=== PATIENT | male | born 1945 | race Caucasian/White ===

== ENCOUNTER 2018-12-06 13:29 | Inpatient (IN) | payer MEDICARE, MEDICAID ==
[~2018-12-06] VITALS: Ht 190.5 cm; Wt 79.2 kg
[2018-12-06 13:51] LABS: BASOPHILS # (AUTO) 0.1 /CMM (0.0-0.2); BASOPHILS % (AUTO) 1.4 % (0.0-2.0); EOSINOPHILS % (AUTO) 0.1 % (0.0-6.0); HEMATOCRIT 33 % (39-51); HEMOGLOBIN 10.7 g/dL (13.5-17.5); LYMPHOCYTES # (AUTO) 0.6 /CMM (0.8-4.8); LYMPHOCYTES % (AUTO) 7.6 % (20.0-44.0); MEAN CORPUSCULAR HGB CONC 33 g/dl (31.0-36.0); MEAN CORPUSCULAR VOLUME 87 fL (80-96); MONOCYTES # (AUTO) 0.9 /CMM (0.1-1.30); MONOCYTES % (AUTO) 11.1 % (2.0-12.0); NEUTROPHILS # (AUTO) 6.7 /CMM (1.8-8.9); NEUTROPHILS % (AUTO) 79.8 % (43.0-81.0); PLATELET COUNT (AUTO) 382 /CMM (150-450); RED BLOOD CELL COUNT(AUTO) 3.74 MIL/uL (4.5-6.0); WHITE BLOOD COUNT (AUTO) 8.3 K/uL (4.3-11.0)
--- NOTE | 2018-12-06 13:51 | NUR ---
Dr Carias's public services assistant (Leyla) contact info: [phone]
[2018-12-06] MEDS ORDERED: CEFTRIAXONE 1GM BAG (ER ONLY) 50 ML IV ONE ×2 (14:00)
[2018-12-06] MEDS ORDERED: IV NS 0.9% 1,000 ML BAG IV ONE (14:00)
--- NOTE | 2018-12-06 14:00 | NUR ---
BIBRA 87 from home c/o generalized weakness, bilateral pitting edema to lower extremities, hx of colon cancer (stage 4). PT AAOX4, VSS. DENIES CP, SOB, DIZZINESS, N/V/D AT THIS TIME. PT SEEN & EVAL'D BY DR. SHOEMAKER. DAUGHTER AT BS & WILL CONT TO MONITOR.
[2018-12-06 14:01] LABS: CALCIUM, SERUM 7.7 mg/dL (8.5-10.1); CARBON DIOXIDE 23 mmol/L (21-32); CHLORIDE 98 mmol/L (98-107); CREATININE 0.8 mg/dL (0.6-1.3); GLUCOSE 152 mg/dL (74-106); POTASSIUM 3.6 mmol/L (3.5-5.1); SODIUM SERUM 132 mmol/L (136-145); UREA NITROGEN, BLOOD 13 mg/dL (7-18)
[2018-12-06 14:06] LABS: ALANINE AMINOTRANSFERASE 18 U/L (12-78); ALBUMIN 2.6 g/dL (3.4-5.0); ALKALINE PHOSPHATASE 165 U/L (46-116); ASPARTATE AMINOTRANSFERASE 28 U/L (15-37); BILIRUBIN,DIRECT 0.1 mg/dL (0.0-0.2); BILIRUBIN,TOTAL 0.4 mg/dL (0.2-1.0); TOTAL PROTEIN, SERUM 6.9 g/dL (6.4-8.2)
[2018-12-06 14:53] LABS: APPEARANCE,URINE Clear (CLEAR); BILIRUBIN,URINE Negative (NEGATIVE); BLOOD, URINE Negative Ery/uL (NEGATIVE); COLOR,URINE Yellow (YELLOW); KETONES,URINE Negative (NEGATIVE); LEUKOCYTE ESTERASE ,URINE Negative (NEGATIVE); NITRITE, URINE Negative (NEGATIVE); PROTEIN,URINE Negative (NEGATIVE); UGLUCOSE Negative (NEGATIVE); UROBILINOGEN,URINE 0.2 EU/dL (0.2)
--- NOTE | 2018-12-06 15:03 | NUR ---
IMTIAZ FRIAS, MIRIAM ALMAGUER AIRLINE LOUNGE RECEPTIONIST MORTAR CARRIER
--- NOTE | 2018-12-06 15:10 | NUR ---
CALLED NURSING SUP. FOR MS BED
[2018-12-06] MEDS ORDERED: DEXA4TAB PO (16:08)
[2018-12-06] MEDS ORDERED: FURO40TA5 PO (16:08)
[2018-12-06] MEDS ORDERED: ONDA4TAB10 PO (16:08)
[2018-12-06] MEDS ORDERED: PANT40TA4 PO (16:08)
[2018-12-06] MEDS ORDERED: TRAZ-213 PO (16:08)
[2018-12-06] MEDS ORDERED: POTA20TA83 PO (16:08)
[2018-12-06] MEDS ORDERED: CHOL10002 PO (16:08)
[2018-12-06] MEDS ORDERED: NITR0.4T48 PO (16:08)
[2018-12-06] MEDS ORDERED: NAPR-1009 PO (16:08)
[2018-12-06] MEDS ORDERED: SIMV20TA6 PO (16:08)
[2018-12-06] MEDS ORDERED: FENT1PAT6 TD (16:08)
[2018-12-06 16:58] LABS: B-TYPE NATRIURETIC PEPTIDE 1466 PG/ML (0-125)
[2018-12-06 16:59] LABS: CREATINE KINASE, TOTAL 48 U/L (39-308)
[2018-12-06 17:30] VITALS: BP 118/56
--- NOTE | 2018-12-06 17:30 | NUR ---
MS RN ADMITTING NOTES ADMITTED PT FROM ER WITH DX OF FAILURE TO THRIVE.PT IS ALERT AND ORIENTED X3 BUT HARDLY SPEAKS.RESPIRATIONS NON LABORED IN ROOM AIR. DENIES ANY DISTRESS/DISCOMFORT.SKIN INTACT.WITH BLE PITTING EDEMA STAGE 4.ELEVATED BLE WITH PILLOWS.ORIENTATION TO ROOM AND USE OF CALL LIGHT DONE.PT PREFERS TO SLEEP AND C/O FEELING COLD ALL THE TIME.COVERED PT WITH 3 WARM BLANKETS.ATE 40%DINNER .CALL LIGHT PLACED WITHIN REACH.
[2018-12-06 18:00] VITALS: BP 118/56
[2018-12-06] MEDS ORDERED: ZOLPIDEM TARTRATE 5 MG TABLET PO PRN (18:30)
[2018-12-06] MEDS ORDERED: Z GUARD REMEDY 2 OZ OINT TP PRN (18:30)
[2018-12-06] MEDS ORDERED: ONDANSETRON HCL/PF 4 MG/2 ML VIAL IVP PRN (18:30)
[2018-12-06] MEDS: IV NS 0.9% 1,000 ML IV PRN (18:50)
[2018-12-06] MEDS: MULTIVITAMINS,THERAGRAN 1 UDTAB TABLET PO SCH (19:03)
[2018-12-06] MEDS: FOLIC ACID 1 MG TABLET PO SCH (19:03)
--- NOTE | 2018-12-06 19:20 | NUR ---
MS RN OPENING NOTES Received patient A/O x 4, awake on supine position on bed. On RA, no SOB/respiratory distress noted. Patient denies any discomfort at this time. With patent peripheral IV line RFA G#18 with NS infsuing well @ 75ml/hr as ordered. On fall precaution. Call light with easy reach. Will continue to monitor accordingly.
[2018-12-06 20:00] VITALS: BP 117/57
[2018-12-06] MEDS: ENOXAPARIN SODIUM 40 MG/0.4 ML DISP.SYRIN SQ SCH (21:34)
--- NOTE | 2018-12-07 06:45 | NUR ---
MS RN CLOSING NOTES Patient intermittently asleep throughout the shift. No new complaints made. Kept warm and comfortable, call light within easy reach. On fall precautions. All due meds given as ordered. No new complaints made. Endorsed to the next shift.
[2018-12-07 06:47] LABS: BASOPHILS % (AUTO) 0.1 % (0.0-2.0); EOSINOPHILS % (AUTO) 0.1 % (0.0-6.0); HEMATOCRIT 28 % (39-51); HEMOGLOBIN 9.3 g/dL (13.5-17.5); LYMPHOCYTES # (AUTO) 0.8 /CMM (0.8-4.8); LYMPHOCYTES % (AUTO) 12.6 % (20.0-44.0); MEAN CORPUSCULAR HGB CONC 33 g/dl (31.0-36.0); MEAN CORPUSCULAR VOLUME 87 fL (80-96); MONOCYTES # (AUTO) 0.8 /CMM (0.1-1.30); MONOCYTES % (AUTO) 12.9 % (2.0-12.0); NEUTROPHILS # (AUTO) 4.9 /CMM (1.8-8.9); NEUTROPHILS % (AUTO) 74.3 % (43.0-81.0); PLATELET COUNT (AUTO) 328 /CMM (150-450); RED BLOOD CELL COUNT(AUTO) 3.27 MIL/uL (4.5-6.0); WHITE BLOOD COUNT (AUTO) 6.6 K/uL (4.3-11.0)
[2018-12-07 06:49] LABS: ALANINE AMINOTRANSFERASE 16 U/L (12-78); ALBUMIN 2.1 g/dL (3.4-5.0); ALKALINE PHOSPHATASE 139 U/L (46-116); ASPARTATE AMINOTRANSFERASE 18 U/L (15-37); BILIRUBIN,TOTAL 0.5 mg/dL (0.2-1.0); CALCIUM, SERUM 6.8 mg/dL (8.5-10.1); CARBON DIOXIDE 22 mmol/L (21-32); CHLORIDE 99 mmol/L (98-107); CREATININE 0.7 mg/dL (0.6-1.3); GLUCOSE 142 mg/dL (74-106); MAGNESIUM 2.1 mg/dL (1.8-2.4); PHOSPHORUS 2.2 mg/dL (2.5-4.9); POTASSIUM 3.6 mmol/L (3.5-5.1); SODIUM SERUM 132 mmol/L (136-145); UREA NITROGEN, BLOOD 11 mg/dL (7-18)
[2018-12-07 06:56] LABS: CHOLESTEROL 128 mg/dL (<200); HDL CHOLESTEROL 39 mg/dL (40-60); LDL 84 mg/dL (0-99); THYROID STIMULATING HORMONE 2.305 uIU/mL (0.358-3.74); TRIGLYCERIDES 75 mg/dL (30-150)
[2018-12-07 07:00] VITALS: BP 100/46
[2018-12-07 07:06] LABS: IRON, SERUM 16 ug/dl (50-175); TOTAL IRON BINDING CAPACITY 139 ug/dl (250-450)
[2018-12-07 07:52] LABS: THYROID STIMULATING HORMONE 2.277 uIU/mL (0.358-3.74)
[2018-12-07 08:00] VITALS: BP 100/46
--- NOTE | 2018-12-07 09:39 | NUR ---
patient is for ct scan of the head and radiology personnel and patient to ct scan department for the scheduled procedure in stable condition
[2018-12-07] MEDS ORDERED: K PHOS NEUTRAL 250 MG TABLET PO ONE (10:00)
[2018-12-07] MEDS: PANTOPRAZOLE 40 MG TABLET.DR PO SCH (10:25)
[2018-12-07] MEDS: MULTIVITAMINS,THERAGRAN 1 UDTAB TABLET PO SCH (10:26)
[2018-12-07] MEDS: FOLIC ACID 1 MG TABLET PO SCH (10:26)
--- NOTE | 2018-12-07 10:39 | NUR ---
CT SCAN OF THE BRAIN COMPLETED AND PATIENT BACK TO THE ROOM. MEDICATIONS DUE GIVEN. PHYSICAL THERAPY IN AND WILL DO PHYSICAL THERAPY ORDERED.
[2018-12-07] MEDS: IV NS 0.9% 1,000 ML IV PRN (11:14)
--- NOTE | 2018-12-07 12:04 | NUR ---
family in and brought food for the patient. PT in and ambulated the patient ,tolerated well
--- NOTE | 2018-12-07 13:12 | NUR ---
DR ALMAGUER PAGED NOT RESPONDED TO TEXT, REGARDING PATIENT REQUEST TO TALK TO THE PHYSICIAN AND ORDERED FOR A PAIN PATCH TO THE RIGHT SHOUOLDERS PAIN AND STOCKING FOR BILATERAL LEGS DUE TO SWELLING. MESSAGE LEFT WITH THE EXCHANGE, AWAITING RESPONSE
[2018-12-07] MEDS: HYDROCODONE/APAP 5/325MG 1 EACH TABLET PO PRN (13:28)
[2018-12-07 13:29] VITALS: BP 111/48
--- NOTE | 2018-12-07 13:54 | NUR ---
EXCHAGE ALLED IF DR Rogers HAS CALLED BACK AND NOT CALLED BACK.WILL REACH OUT TO dR ROGERS AGAIN. Addendum: 12/07/18 at 1356 by VANESSA ESPINOSA RN AWAITING FOR DR ROGERS TO CALL SOURAV
--- NOTE | 2018-12-07 14:27 | NUR ---
DR ALMAGUER DID NOT CALL BACK AND NOT RESPONDED TO THE TEXT, CALLED EXCHANGE AND DR HERNANDEZ IS THE TRANSITIONAL CARE NURSE. EXCHAMGE WILL CALL HIM FOR ORDERS, DR ALMAGUER DID NOT RESPONSE
--- NOTE | 2018-12-07 14:43 | NUR ---
AMBULATED TO THE EUNICEROM WITH A WALKER AND WITH ASSIST. TOLERATED AND ASSISTED BACK TO BED, TOLERATED THE PROCEDURE
[2018-12-07] MEDS: PROSOURCE / PROSTAT (PYXIS) 30 ML UDC PO SCH ×2 (15:22→17:00)
--- NOTE | 2018-12-07 15:31 | NUR ---
DR ALMAGUER RESPONDED DWIGHT TEXT MESSAGE AND WITH NO FURTHER ORDERS,
[2018-12-07 15:47] VITALS: BP 111/57
--- NOTE | 2018-12-07 17:43 | NUR ---
PROSTAT GIVEN AT 1500 HOURS, DOSE HELD FOR NOW
[2018-12-07] MEDS: ENSURE ENLIVE 237 ML LIQUID (VANILLA) PO SCH (17:44)
--- NOTE | 2018-12-07 19:10 | NUR ---
MS RN NOTE RECEIVED PT IN STABLE CONDITION A&O X4, ABLE TO MAKE NEEDS KNOWN. CURRENTLY IN BED TAKING A NAP, EASILY AROUSABLE WHEN NAME IS CALLED. NO SIGNS OF SOB OR DISTRESS, NO C/O PAIN. IV PATENT AND INTACT WITH IVF INFUSING. ALL CURRENT NEEDS MET. BED LOW, LOCKED, UPPER RAILS UP, AND CALL LIGHT WITHIN REACH. WILL CONT. TO MONITOR.
[2018-12-07 20:00] VITALS: BP 110/49
[2018-12-07] MEDS: ENOXAPARIN SODIUM 40 MG/0.4 ML DISP.SYRIN SQ SCH (20:51)
[2018-12-07] MEDS: ACETAMINOPHEN 325 MG TABLET PO PRN (20:55)
--- NOTE | 2018-12-08 06:25 | NUR ---
MS RN NOTE PT IN STABLE CONDITION A&O X4, ABLE TO MAKE NEEDS KNOWN. IN BED AND AWAKE. NO SIGNS OF SOB OR DISTRESS, NO C/O PAIN. IV PATENT AND INTACT S/L. ALL CURRENT NEEDS MET. BED LOW, LOCKED, UPPER RAILS UP, AND CALL LIGHT WITHIN REACH. WILL CONT. TO MONITOR AND ENDORSE TO NEXT SHIFT FOR APOLLO.
--- NOTE | 2018-12-08 07:14 | NUR ---
MS RN OPENING NOTES RECEIVED PT AWAKE IN BED IN NO ACUTE SIGNS OF DISTRESS. A/O X4 AND ABLE TO MAKE NEEDS KNOWN, DENIES PAIN OR ANY DISCOMFORTS AT THIS TIME. ON ROOM AIR, RESPIRATIONS EVEN AND UNLABORED. IV HL ON RFA PATENT AND INTACT. BED IN LOW LOCKED POSITION WITH SIDE RAILS UP X2 AND CALL LIGHT WITHIN REACH. WILL CONTINUE TO MONITOR ACCORDINGLY.
[2018-12-08] MEDS: PANTOPRAZOLE 40 MG TABLET.DR PO SCH (07:40)
[2018-12-08] MEDS: HYDROCODONE/APAP 5/325MG 1 EACH TABLET PO PRN ×2 (07:44→16:17)
[2018-12-08 08:00] VITALS: BP 109/53
[2018-12-08] MEDS: ENSURE ENLIVE 237 ML LIQUID (VANILLA) PO SCH ×3 (08:05→17:30)
[2018-12-08] MEDS: FOLIC ACID 1 MG TABLET PO SCH (08:05)
[2018-12-08] MEDS: MULTIVITAMINS,THERAGRAN 1 UDTAB TABLET PO SCH (08:05)
[2018-12-08] MEDS: PROSOURCE / PROSTAT (PYXIS) 30 ML UDC PO SCH ×2 (08:05→16:22)
--- NOTE | 2018-12-08 11:08 | NUR ---
WOUND CARE CONSULT: PT PRESENTS WITH RT HIP BRUISING AND DRY ABRASION, PRESENT ON ADMISSION. PT ABLE TO ASSIST WITH TURNING AND REPOSITIONING IN BED. BILATERAL LOWER EXTREMITIES HAVE 4+ EDEMA. LEGS ELEVATED. PT IS CONTINENT AT THIS TIME. RECOMMENDATIONS MADE FOR SKIN PROTECTION. DISCUSSED WITH NURSING STAFF. WILL SEE PRN. RAHMAN IN AGREEMENT WITH PLAN OF CARE. CURRENT CRISTOPHER SCORE IS 15.
--- NOTE | 2018-12-08 11:42 | NUR ---
RN NOTES PATIENT WITH LOW LEVEL PHOSPHORUS 2.3 TODAY. NEUTRA PHOS K 500MG PO GIVEN ORDERED. WILL CONTINUE TO MONITOR.
[2018-12-08] MEDS ORDERED: K PHOS NEUTRAL 250 MG TABLET PO ONE (12:00)
[2018-12-08] MEDS ORDERED: FENTANYL TD PATCH (12 MCG/HR) 12 MCG/HR PATCH.TD72 TD SCH (12:30)
--- NOTE | 2018-12-08 12:39 | NUR ---
RN NOTES/PAIN MANAGEMENT PT SEEN AND EVALUATED BY DR ALMAGUER . PT WITH C/O RIGHT SHOULDER PAIN. DR ALMAGUER WITH ORDER TO ADMINISTER FENTANYL PATCH 12MCG Q 72HRS. PATCH APPLIED TO RIGHT SHOULDER AT 1236. WILL CONTINUE TO MONITOR.
--- NOTE | 2018-12-08 13:46 | NUR ---
RN NOTES COMPRESSION STOCKINGS APPLIED PER DR ALMAGUER'S ORDER. WILL CONTINUE TO MONITOR.
[2018-12-08] MEDS ORDERED: SOD FERRIC GLUC 125 MG in IV NS 0.9% 100 ML IV SCH (14:00)
[2018-12-08 16:00] VITALS: BP 123/56
--- NOTE | 2018-12-08 16:20 | NUR ---
RN NOTES/PAIN MANAGEMENT PT NOTED GRIMACING WITH C/O RIGHT SHOULDER PAIN WITH SCALE OF 6/10. PRN NORCO 5/325 MG P0 GIVEN AT 1617. WILL CONTINUE TO MONITOR AND REASSESS PT.
--- NOTE | 2018-12-08 17:55 | NUR ---
RN NOTES PT WHEEL DOWN VIA WHEELCHAIR TO RADIOLOGY FOR CT SCAN OF SPINE WITHOUT CONTRAST. AFTER 15MINUTES CAME BACK AND WENT TO REST IN BED WITH SITTER AT BEDSIDE. EXPLAINED TO PT THAT WE NEED TO COLLECT URINE SPECIMEN. NEW URINAL PLACED AT BEDSIDE. WILL CONTINUE TO MONITOR.
--- NOTE | 2018-12-08 18:42 | NUR ---
MS RN CLOSING NOTES PATIENT IN BED AWAKE AND RESTING AT MODERATE HIGH BACKREST POSITION. A/O X4 AND ABLE TO MAKE NEEDS KNOWN. ON ROOM AIR, TOLERATING WELL WITH NO SOB NOTED. NO ACUTE EVENT NOTED THROUGHOUT THE DAY. IV HL ON RFA INTACT AND PATENT, FLUSHED WITH NS AND OPERATIONAL. ALL NEEDS AND CARE ATTENDED WELL. SAFETY MEASURES IN PLACE. BED IN LOW LOCKED POSITION WITH SIDE RAILS UP X2. CALL LIGHT WITHIN REACH. WILL ENDORSE TO MARKETING COMMUNICATIONS ASSISTANT NURSE FOR APOLLO.
--- NOTE | 2018-12-08 19:30 | NUR ---
MS RN OPENING NOTES: RECEIVED PATIENT RESTING COMFORTABLY IN BED. NO SOB, AWAKE ALERT AND ORIENTED X4. NO COMPLAIN OF PAIN.WITH BLE COMPRESSION STOCKINGS, SKIN ASSESSMENT ON THE BLE DONE-WNL. BILATERAL ANKLE AND FEET EDEMA PITTING +2, OFFLOADING WITH 2 PILLOWS, PATIENT INSTRUCTED,VERBALIZED UNDERSTANDING. CALL LIGHT WITHIN REACH. INSTRUCTED TO CALL WHEN OOB,PATIENT VERBALIZED UNDERSTANDING.
[2018-12-08 20:00] VITALS: BP 118/58
[2018-12-08] MEDS: ENOXAPARIN SODIUM 40 MG/0.4 ML DISP.SYRIN SQ SCH (20:45)
[2018-12-08] MEDS: ACETAMINOPHEN 325 MG TABLET PO PRN (20:51)
--- NOTE | 2018-12-08 23:00 | NUR ---
PATIENT AMBULATED WITH WALKER ALONG THE HALLWAY,TOLERATED.
--- NOTE | 2018-12-09 | NUR ---
PATIENT IS ASLEEP AT THIS TIME.
--- NOTE | 2018-12-09 00:33 | NUR ---
PATIENT COMPLAINED OF FEELING WARM, TEMP CHECKED 99.1, ICE PACKS ON AXILLAE PLACED.
[2018-12-09] MEDS: HYDROCODONE/APAP 5/325MG 1 EACH TABLET PO PRN ×4 (00:50→14:26)
--- NOTE | 2018-12-09 02:22 | NUR ---
patient asked for something to eat, offered eggsandwich refused, then vanilla pudding offered, patient accepted it and ate 100% of it.
[2018-12-09] MEDS: ACETAMINOPHEN 325 MG TABLET PO PRN (04:03)
--- NOTE | 2018-12-09 04:45 | NUR ---
PATIENT AMBULATES WITH THE WALKER IN THE HALLWAY, STEADY. TOLERATED. AND WENT TO THE BATHROOM,VOIDED
--- NOTE | 2018-12-09 05:57 | NUR ---
MS RN CLOSING NOTES: PATIENT IS RESTING COMFORTABLY IN BED. MEDICATED WITH NORCO FOR PAIN, RELIEVED. CALL LIGHT WITHIN REACH. BED IN LOW LOCKED POSITION. WALKER AT THE BEDSIDE. NO ACUTE EVENTS OVERNIGHT. NO SOB.
[2018-12-09 07:16] LABS: BASOPHILS % (AUTO) 0.3 % (0.0-2.0); EOSINOPHILS % (AUTO) 0.7 % (0.0-6.0); HEMATOCRIT 29 % (39-51); HEMOGLOBIN 9.5 g/dL (13.5-17.5); LYMPHOCYTES # (AUTO) 0.6 /CMM (0.8-4.8); LYMPHOCYTES % (AUTO) 11.7 % (20.0-44.0); MEAN CORPUSCULAR HGB CONC 33 g/dl (31.0-36.0); MEAN CORPUSCULAR VOLUME 86 fL (80-96); MONOCYTES # (AUTO) 0.6 /CMM (0.1-1.30); MONOCYTES % (AUTO) 11.1 % (2.0-12.0); NEUTROPHILS # (AUTO) 3.9 /CMM (1.8-8.9); NEUTROPHILS % (AUTO) 76.2 % (43.0-81.0); PLATELET COUNT (AUTO) 289 /CMM (150-450); RED BLOOD CELL COUNT(AUTO) 3.33 MIL/uL (4.5-6.0); WHITE BLOOD COUNT (AUTO) 5.2 K/uL (4.3-11.0)
--- NOTE | 2018-12-09 07:19 | NUR ---
RN MS OPENING NOTES Received patient on room air, no sob noted. Patient denies pain at this time. Patient is a/o X4, no discomfort noted. Patients bed at lowest setting, call light within reach.
[2018-12-09 07:36] LABS: CALCIUM, SERUM 7.2 mg/dL (8.5-10.1); CARBON DIOXIDE 24 mmol/L (21-32); CHLORIDE 100 mmol/L (98-107); CREATININE 0.6 mg/dL (0.6-1.3); GLUCOSE 133 mg/dL (74-106); MAGNESIUM 2.3 mg/dL (1.8-2.4); PHOSPHORUS 2.3 mg/dL (2.5-4.9); POTASSIUM 3.9 mmol/L (3.5-5.1); SODIUM SERUM 131 mmol/L (136-145); UREA NITROGEN, BLOOD 12 mg/dL (7-18)
[2018-12-09 08:00] VITALS: BP 114/83
[2018-12-09] MEDS: MULTIVITAMINS,THERAGRAN 1 UDTAB TABLET PO SCH (08:17)
[2018-12-09] MEDS: PANTOPRAZOLE 40 MG TABLET.DR PO SCH (08:17)
[2018-12-09] MEDS: ENSURE ENLIVE 237 ML LIQUID (VANILLA) PO SCH ×2 (08:17→13:05)
[2018-12-09] MEDS: FOLIC ACID 1 MG TABLET PO SCH (08:17)
[2018-12-09] MEDS: PROSOURCE / PROSTAT (PYXIS) 30 ML UDC PO SCH (08:22)
[2018-12-09] MEDS ORDERED: K PHOS NEUTRAL 250 MG TABLET PO ONE (12:30)
[2018-12-09] MEDS ORDERED: FENT1PAT6 TD (13:42)
[2018-12-09] MEDS ORDERED: Prosource PO (13:42)
[2018-12-09] MEDS ORDERED: FERR325T23 PO (13:42)
[2018-12-09] MEDS ORDERED: GABA-534 PO (13:44)
--- NOTE | 2018-12-09 16:53 | NUR ---
RN MS NOTES Patient discharged around 1625, no sob noted. Vital signs stable, patient denies pain at this time. Patient has all the discharge paperwork, signed. Patient had no questions regarding discharge orders. All belongings with patient, cellphone, clothing. Patient's right hip taken a photo of and is now on file. Patient transferred to [facility].
[2018-12-11 14:11] LABS: *SPE A/G RATIO 0.7 (0.7-1.7); *SPE ALBUMIN 2.2 g/dL (2.9-4.4); *SPE ALPHA-1-GLOBULIN 0.4 g/dL (0.0-0.4); *SPE BETA GLOBULIN 0.9 g/dL (0.7-1.3); *SPE M-SPIKE Not Observed g/dL (Not Observed); *SPEGAMMA GLOBULIN 0.8 g/dL (0.4-1.8)
== END 2018-12-09 16:15 | DRG 74 ==
LOC: ER 13:29 → EDBD 13:29 → MED 15:57
PROVIDERS: ADMIT Nurse Practitioner Acute Care; ATTEND Nurse Practitioner Acute Care
DX: G61.81 Chronic inflammatory demyelinating polyneuritis (principal); C34.11 Malignant neoplasm of upper lobe, right bronchus or lung; D68.59 Other primary thrombophilia; D68.9 Coagulation defect, unspecified; E87.1 Hypo-osmolality and hyponatremia; E86.0 Dehydration; R62.7 Adult failure to thrive; D63.8 Anemia in other chronic diseases classified elsewhere; Z87.891 Personal history of nicotine dependence; R73.9 Hyperglycemia, unspecified; D32.0 Benign neoplasm of cerebral meninges; G60.8 Other hereditary and idiopathic neuropathies; R60.0 Localized edema; D50.9 Iron deficiency anemia, unspecified
CPT/HCPCS: 36415; 70450-TC; 71045-TC; 72125-TC; 80048-TC; 80053-TC; 80061-TC; 80076-TC; 81000-TC; 82550-TC; 82728-TC; 83540-TC; 83605-TC; 83735-TC; 83880; 84100-TC; 84155; 84165; 84443-TC; 84484-TC; 85025-TC; 85730-TC; 87040-TC; 87081-TC; 87086-TC; 93970-TC; 97116-TC; 97530-TC; G0378; J0696; J1650; J2916; J7030; J7050

== ENCOUNTER 2019-01-17 21:16 | Emergency (ER) | payer MEDICARE, MEDICAID ==
[~2019-01-17] VITALS: Ht 180.3 cm; Wt 81.6 kg
[~2019-01-17 21:16] MED LIST: CHOL10002 PO; DEXA4TAB PO; FENT1PAT6 TD; FERR325T23 PO; FURO40TA5 PO; GABA-534 PO; NAPR-1009 PO; NITR0.4T48 PO; ONDA4TAB10 PO; PANT40TA4 PO; POTA20TA83 PO; Prosource PO; SIMV20TA6 PO; TRAZ-252 PO
--- NOTE | 2019-01-17 21:25 | NUR ---
DAUGHTER NEIL OLIVAS [phone], IS POWER OF BOILER RELINER AND MAKES ALL DECISIONS FOR PT. ASKED TO TO CALLED FOR UPDATES AND AGAIN ANY DECISIONS THAT NEED TO BE MADE,
--- NOTE | 2019-01-17 21:33 | NUR ---
BIBA FOR C/O R SHOULDER PAIN S/P FALL FEW HOURS AGO. SKIN INTACT. PT DENIED HITTING HIS HEAD ABLE TO RAISE HIS HAND. VSS. WILL CONT TO MONITOR ,
--- NOTE | 2019-01-17 22:28 | NUR ---
AT THE BED SIDE
[2019-01-17 23:23] LABS: BASOPHILS % (AUTO) 0.6 % (0.0-2.0); EOSINOPHILS % (AUTO) 0.8 % (0.0-6.0); HEMATOCRIT 26 % (39-51); HEMOGLOBIN 8.6 g/dL (13.5-17.5); LYMPHOCYTES # (AUTO) 1.2 /CMM (0.8-4.8); LYMPHOCYTES % (AUTO) 19.1 % (20.0-44.0); MEAN CORPUSCULAR HGB CONC 33 g/dl (31.0-36.0); MEAN CORPUSCULAR VOLUME 80 fL (80-96); MONOCYTES # (AUTO) 0.8 /CMM (0.1-1.30); MONOCYTES % (AUTO) 12.1 % (2.0-12.0); NEUTROPHILS # (AUTO) 4.4 /CMM (1.8-8.9); NEUTROPHILS % (AUTO) 67.4 % (43.0-81.0); PLATELET COUNT (AUTO) 312 /CMM (150-450); RED BLOOD CELL COUNT(AUTO) 3.25 MIL/uL (4.5-6.0); WHITE BLOOD COUNT (AUTO) 6.5 K/uL (4.3-11.0)
[2019-01-17 23:31] LABS: CALCIUM, SERUM 7.1 mg/dL (8.5-10.1); CARBON DIOXIDE 23 mmol/L (21-32); CHLORIDE 99 mmol/L (98-107); CREATININE 0.8 mg/dL (0.6-1.3); GLUCOSE 114 mg/dL (74-106); POTASSIUM 3.2 mmol/L (3.5-5.1); SODIUM SERUM 133 mmol/L (136-145); UREA NITROGEN, BLOOD 13 mg/dL (7-18)
[2019-01-18] MEDS ORDERED: POTASSIUM CHLORIDE 20 MEQ TAB.PRT.SR PO ONE ×2 (00:13)
--- NOTE | 2019-01-18 00:43 | NUR ---
Patient is resting comfortably in bed awake and alert. VSS. will cont to monitor ,
--- NOTE | 2019-01-18 00:51 | NUR ---
dtr: debby phone number: [phone]
--- NOTE | 2019-01-18 02:05 | NUR ---
Patient discharged to home in stable condition. Rx and Written and verbal after care instructions given. Patient verbalizes understanding of instruction.
[2019-01-18 03:05] VITALS: BP 112/64
== END 2019-01-18 02:05 | disposition home or self-care (01) ==
LOC: ER 21:18
DX: S42.031A Displaced fracture of lateral end of right clavicle, initial encounter for closed fracture (principal); E87.6 Hypokalemia; D64.9 Anemia, unspecified; E78.5 Hyperlipidemia, unspecified; R94.31 Abnormal electrocardiogram [ECG] [EKG]; Z85.118 Personal history of other malignant neoplasm of bronchus and lung; Z60.2 Problems related to living alone; W18.39XA Other fall on same level, initial encounter; Y93.89 Activity, other specified; Y92.89 Other specified places as the place of occurrence of the external cause; Y99.8 Other external cause status
CPT/HCPCS: 36415; 71045-TC; 73030-TC; 80048-TC; 85025-TC